=== PATIENT | male | born 1985 | race Caucasian/White ===

== ENCOUNTER 2024-06-21 23:14 | Emergency (ER) | payer BC ==
[2024-06-21 23:18] VITALS: RESP 18
--- NOTE | 2024-06-21 23:43 | ED ---
Lower Extremity Injury HPI - General Chief Complaint: Extremity Injury, Lower Stated Complaint: Lft Knee Pain Time Seen by Provider: 06/21/24 23:42 Source: patient, RN notes reviewed Mode of arrival: ambulatory Limitations: no limitations - History of Present Illness Initial Comments: 39-year-old male presented to ER with a chief complaint of left knee injury. Patient states yesterday he was playing dodgeball and accidentally twisted his left knee when tripping on a ball. He states his left knee internally rotated. He has been expressing pain over the medial joint line. He does report mild swelling. He has taken [id number] Excedrin without relief. He does report while at work today his pain has increased and he states his foot felt n umb. No other injuries or complaints. - Related Data Allergies Allergy/AdvReac Type Severity Reaction Status Date / Time No Known Allergies Allergy Verified 06/21/24 23:17 Review of Systems ROS Statement: Those systems with pertinent positive or pertinent negative responses have been documented in the HPI. ROS Other: All systems not noted in ROS Statement are negative. Past Medical History Past Medical History: No Reported History History of Any Multi-Drug Resistant Organisms: None Reported Past Surgical History: No Surgical Hx Reported Past Psychological History: No Psychological Hx Reported Smoking Status: Never smoker Past Alcohol Use History: None Reported Past Drug Use History: Marijuana General Exam Limitations: no limitations General appearance: alert, in no apparent distress Respiratory exam: Present: normal lung sounds bilaterally. Absent: respiratory distress, wheezes, rales, rhonchi, stridor Cardiovascular Exam: Present: regular rate, normal rhythm, normal heart sounds. Absent: systolic murmur, diastolic murmur, rubs, gallop, clicks Extremities exam: Present: full ROM, tenderness (Left knee medial joint line. Pain with active flexion at knee. Pain with valgus stress. Positive Danita's test with external rotation of the tibia. 2+ left dorsalis pedis and posterior tibialis pulses.) Neurological exam: Present: alert, oriented X3, CN II-XII intact Skin exam: Present: warm, dry, intact, normal color. Absent: rash Course Vital Signs 06/21/24 06/22/24 23:15 01:42 Temperature 98.2 F 97.8 F Pulse Rate 94 69 Respiratory 18 18 Rate Blood Pressure 126/84 122/83 O2 Sat by Pulse 96 98 Oximetry Medical Decision Making - Medical Decision Making Was pt. sent in by a medical professional or institution (, [facility], FRUIT GRADER OPERATOR, urgent care, hospital, or [facility]...) When possible be specific @ -No Did you speak to anyone other than the patient for history (EMS, parent, family, police, friend...)? What history was obtained from this source @ -No Did you review nursing and triage notes (agree or disagree)? Why? @ -I reviewed and agree with nursing and triage notes Were old charts reviewed (outside hosp., previous admission, EMS record, old EKG, old radiological studies, urgent care reports/EKG's, [facility] records)? Report findings @ -No old charts were reviewed Differential Diagnosis (chest pain, altered mental status, abdominal pain women, abdominal pain men, vaginal bleeding, weakness, fever, dyspnea, syncope, headache, dizziness, GI bleed, back pain, seizure, CVA, palpatations, mental health, musculoskeletal)? @ -Differential Musculoskeletal: Muscular strain, contusion, ligament sprain, fracture, arthritis, septic arthritis, bursitis, cellulitis, muscle spasm, nerve compression, DVT, arterial occlusion, herpes zoster, electrolyte abnormality, tumor.... This is not meant to be in all inclusive list EKG interpreted by me (3pts min.). @ -None done X-rays interpreted by me (1pt min.). @ -Left knee x-ray negative for acute osseous process. CT interpreted by me (1pt min.). @ -None done U/S interpreted by me (1pt. min.). @ -None done What testing was considered but not performed or refused? (CT, X-rays, U/S, labs)? Why? @ -None What meds were considered but not given or refused? Why? @ -None Did you discuss the management of the patient with other professionals (professionals i.e. , [facility], FRUIT GRADER OPERATOR, lab, RT, psych nurse, social services coordinator, business intelligence consultant, teacher, inshore undersea warfare officer, employment evaluator/case manager)? Give summary @ -No Was smoking cessation discussed for >3mins.? @ -No Was critical care preformed (if so, how long)? @ -No Were there social determinants of health that impacted care today? How? (Homelessness, low income, unemployed, alcoholism, drug addiction, transportation, low edu. Level, literacy, decrease access to med. care, shelter, rehab)? @ -No Was there de-escalation of care discussed even if they declined (Discuss DNR or withdrawal of care, Hospice)? DNR status @ -No What co-morbidities impacted this encounter? (DM, HTN, Smoking, COPD, CAD, Cancer, CVA, ARF, Chemo, Hep., AIDS, mental health diagnosis, sleep apnea, morbid obesity)? @ -None Was patient admitted / discharged? Hospital course, mention meds given and route, prescriptions, significant lab abnormalities, going to OR and other pertinent info. @ -Discharge. 39-year-old male presented to ER with a chief complaint of left knee injury. History and physical exam completed. Vitals within normal limits. Patient in no signs of acute distress. Left lower extremity neurovascular intact. There is tenderness. Left knee medial joint line. Pain with flexion, valgus force and external tibial rotation Danita's test. Patient received IM Toradol for pain control in the ER. X-rays obtained negative for acute process. Pain believed to be soft tissue in nature. Eugenio wrap given. Advise [id number] ibuprofen and Tylenol for symptom control. I also recommended rest, ice, elevation and compression. I also advise close follow-up with orthopedics, referral given. Strict return parameters discussed. Patient discharged stable condition. Patient verbally expressed understanding agree with care plan. Case discussed with ED attending, Dr. Padron. Undiagnosed new problem with uncertain prognosis? @ -No Drug Therapy requiring intensive monitoring for toxicity (Heparin, Nitro, Insulin, Cardizem)? @ -No Were any procedures done? @ -No Diagnosis/symptom? @ -Knee sprain Acute, or Chronic, or Acute on Chronic? @ -Acute Uncomplicated (without systemic symptoms) or Complicated (systemic symptoms)? @ -Uncomplicated Side effects of treatment? @ -No Exacerbation, Progression, or Severe Exacerbation? @ -No Poses a threat to life or bodily function? How? (Chest pain, [place], [place], pneumonia, PE, COPD, DKA, ARF, appy, cholecystitis, CVA, Diverticulitis, Homicidal, Suicidal, threat to staff... and all critical care pts) @ -No - Radiology Data Radiology results: report reviewed, image reviewed Disposition Clinical Impression: Knee sprain Disposition: HOME SELF-CARE Condition: Stable Instructions (If sedation given, give patient instructions): Knee Sprain (ED) Additional Instructions: May take pzqn-kqo-cwhzauo ibuprofen and Tylenol for pain control. I recommend rest, ice and compression. Follow-up with orthopedics for further evaluation. Return to the ER for any new or worsening concerns. Is patient prescribed a controlled substance at d/c from ED?: No Referrals: Jasmeet Doran MD [Primary Care Provider] - 1-2 days Charli Gottlieb MD [STAFF PHYSICIAN] - 1-2 days Time of Disposition: 02:05
[2024-06-21] MEDS: KETOROLAC 15 MG/ML 1 ML VIAL IM STA (23:46)
--- NOTE | 2024-06-22 01:40 | XR ---
EXAM: XR Left Knee, 3 Views CLINICAL HISTORY: pain after tripping on ball TECHNIQUE: Three views of the left knee. COMPARISON: No relevant prior studies available. FINDINGS: Bones/joints: No acute fracture. No dislocation. Soft tissues: Unremarkable. IMPRESSION: No acute post-traumatic abnormality.
[2024-06-22 01:43] VITALS: BP 122/83; PULSE 69; TEMP 97.8
== END 2024-06-22 02:10 | disposition home or self-care (01) ==
LOC: EC 23:14
CPT/HCPCS: 96372; 99283